=== PATIENT | female | born 2000 | race Two or more races ===

== ENCOUNTER → 2021-04-23 13:42 | Outpatient (BNVA) | payer OTHER, SELFPAY | PROVIDERS: PCP Nurse Practitioner; Visit Provider Psychiatry & Neurology Neurology ==

== ENCOUNTER → 2021-07-02 13:47 | Outpatient (BNVA) | payer OTHER, SELFPAY | PROVIDERS: PCP Nurse Practitioner; Visit Provider Nurse Practitioner Family | DX: R51.9 Headache, unspecified (principal) ==

== ENCOUNTER → 2022-02-17 13:39 | Outpatient (BNVA) | payer OTHER, SELFPAY | PROVIDERS: PCP Nurse Practitioner; Visit Provider Nurse Practitioner Family | DX: Z13.89 Encounter for screening for other disorder (principal) ==

== ENCOUNTER → 2022-05-21 13:59 | Outpatient (BNVA) | payer OTHER, SELFPAY | PROVIDERS: PCP Nurse Practitioner; Visit Provider Nurse Practitioner Family | DX: D64.9 Anemia, unspecified (principal) ==

== ENCOUNTER 2024-05-02 12:34 | Outpatient (AMB) | payer MEDICAID, SELFPAY ==
--- NOTE | 2024-05-02 12:40 | MHC.OFFVIS ---
Vital Signs 05/02/24 12:41 Height 5 ft 2 in Weight 132 lb BMI 24.1 BP 108/70 Blood Pressure Location Rt brachial Position Sitting Intake Visit Reasons: Follow up Intake Note: Patient following up on labs done on 05/22/23.patient no showed to MRI appt. on 08/18/22 Allergies No Known Allergies Allergy (Verified 05/02/24 12:42) Medication List - Last Reconciled 05/02/24 by Leesa Carver MD ascorbate calcium (vitamin C) 500 mg PO DAILY 90 days famotidine (Pepcid) 20 mg PO BID ferrous sulfate 325 mg PO Q OTHER DAY 90 days guselkumab (Tremfya) mg subcut ketoconazole 2% topical Q OTHER DAY magnesium oxide 400 mg PO BEDTIME 90 days propranolol 10 mg PO BID topiramate (Topamax) 25 mg PO BEDTIME 90 days HPI Comments Details: 24 y/o female patient presents for follow up of essential tremor, headache and anemia. The migraines have reduced significantly with topiramate - 1/month she feels her tremors are mildly worse. She is on topiramate 25 mg and magnesium 400 mg qHS. SHe was doing better when she took prorpranalol. Pt reports that she has bilateral legs tremor too. She feel sometimes weak but denies loss of balance. Pt has family hx of essential tremor. Pt reports that the tiredness has improved with iron and vitamin C.? [facility] Medical History GERD (gastroesophageal reflux disease) Headache Anxiety Occasional tremors Social History Alcohol intake: never Patient Tobacco Use Status: Never used Tobacco Review of Systems ENT Reports Normal hearing present Neuro Reports Normal hearing present Physical Exam Vital Signs: Last Vital Signs BP 108/70 05/02/24 12:41 BMI result Body Mass Index 24.1 Const General: cooperative and no acute distress Nutritional Appearance: average body habitus Orientation/consciousness: patient oriented x3 Neck Neck: Yes full ROM and Yes supple Resp Effort & Inspection: normal respiratory effort and able to speak in complete sentences Neuro General: patient oriented x3, gait normal, moves all extremities and no focal motor deficits Cranial nerves: Yes Bilaterally intact EOM present, Yes Normal facial strength present, Yes Midline tongue present, Yes Normal hearing present, Yes Ability to bilaterally rotate head present and Yes Ability to bilaterally elevate shoulders present Cognition (Neuro): normal cognition Gait exam (Neuro): Normal gait present Motor exam (neuro): 5/5 motor strength present throughout, Pronator motor function not present, Normal motor muscle tone present throughout and Tremors during motor activity present (bilateral posturing hands tremor and feet tremor. ) Coordination: [id number] test normal Extrem Other: isela UE postural and action tremors, mild to moderate Psych Appearance: well kempt Mental Status: mental status grossly normal Affect: Anxious affect present Assessment & Plan Assessment & Plan (1) Tremor of both hands: Code(s): R25.1 - Tremor, unspecified Category: Medical (2) Headache: Code(s): R51.9 - Headache, unspecified Category: Medical (3) Anxiety: Code(s): F41.9 - Anxiety disorder, unspecified Category: Medical Plan magnesium 400 mg q HS and topiramate 25 mg qHS. Continue to take ferrous sulfate 325 mg q other day with vitamin C 500 mg daily. Restart propranolol 10mg bid Medications: New propranolol 10 mg PO BID 60 tabs 1RF famotidine (Pepcid) 20 mg PO BID 60 tabs 6RF Discontinued propranolol Discontinued Reason: Patient no longer taking 60 mg PO BEDTIME 30 days 30 tabs 2RF Coding Level of Care Code Est Pt Level 4 (65356) Complex EM visit Add On G2211 Diagnoses Tremor of both hands R25.1 Headache R51.9 Anxiety F41.9
[2024-05-02 12:41] VITALS: BP 108/70; BMI 24.1
--- OUTSIDE RECORDS SUMMARY | 2024-05-02 14:56 | XMS_ITS | Clinical Summary ---
Author Organization [facility] Address [address] [place] [address] Care Team Providers Care Body Die Maker Name Role Phone Lore Hoyos TESSIE Primary Care Provider [phone] Source Comments PLEASE NOTE, if this patient is a minor, it may be UNLAWFUL to discuss sensitive information that is contained in these records (such as FAMILY PLANNING, MENTAL HEALTH or SUBSTANCE ABUSE) with the minor patient's parent or other person without the patient's specific authorization.[facility] Allergies No known active allergies Medications selenium sulfide (SELSUN BLUE) 1 % topical suspensionIndic ations:Dandruff in adult Apply topically once daily as needed for other reason (dry and itchy scalp) 240 mL 2 4 Active ferrous sulfate 325 mg (65 mg iron) tabletIndicatio ns:iron deficiency anemia Take 1 Tablet by mouth once daily with breakfast Indications: anemia from inadequate iron 90 Tablet 3 4 Active Active Problems Problem Noted Date Diagnosed Date Tinea versicolor 08/24/2021 Overview (08/24/2021): Previously treated by Dr Leonard with selenium sulfide. Cervicogenic headache 05/20/2020 Epigastric abdominal pain 03/22/2020 H. pylori infection s/p treatment 02/18/2020 Overview (12/15/2020): 11/27/[address] Solo; normal. Pathology pending. Tremor 02/18/2020 Overview (05/20/2020): 01/25/20 Joana at [facility] Dr Gipson. Concern for Arsenio's disease vs essential tremor. Will get records of work up. Get ophtho exam for slit lamp exam, check labs, sign release of records from [facility]. F/u 3 months. 04/29/20 F/u [facility]. Concern for Arsenio's disease. Ordered genetic testing, ophthalmology exam for slit lamp exam, Will likely pursue referral to Movement Disorder clinic at [facility] for further evaluation if genetic testing is positive. Iron deficiency 02/18/2020 Overview (12/15/2023): 12/15/23- ferrous sulfate 325mg started---recheck labs in ~3 months.. Feb 2024 Low serum copper for age 0102/18/2020 Plaque psoriasis 05/31/2017 Overview (08/24/2021): 09/08/20 F/u Dr Leonard. Continue Tremfya, labs today. F/u 3 months. 03/26/21 F/u Dr Leonard. Check labs. Continue home injections of Tremfya every 8 weeks. F/u 3 months. 06/16/21 F/u Dr Leonard. Continue Tremfya every 8 weeks. F/u 3 months. Beta thalassemia 04/15/2015 Overview (05/31/2017): 09/15/[address] Omar Burger at [facility]. Her anemia is c/w beta thalassemia trait. He recommends genetic counseling. Stop iron supplements. She also has a h/o tremulousness and dropping things as well as a low ceruloplasmin. Recommends serum copper and 24-hour urine copper and consider evaluation by infantryman to look for Mann Gabrielle rings (all symptoms of Arsenio's diease). If this is positive, consider referral to GI or neurology. He was not able to communicate results to the pt and her family d/t not picking up the phone. Immune to varicella 10/10/2013 Overview (11/23/2013): Immune by serologic Immune to hepatitis B 10/10/2013 Overview (11/23/2013): Immune by serologic Anemia Resolved Problems Problem Noted Date Diagnosed Date Resolved Date Iron deficiency anemia 01/27/201505/31 Immunizations Name Administration Dates Next Due Flu, Preservative Free 03/24/2021 HEP B, PED/ADOL 10/10/2013 HPV 9 (Gardasil) 01/23/2016,08/01/2015 HPV, QUADRIVALENT 01/17/2014 Hep A, Ped/adol, 2 Dose 01/27/2015,01/17/2014 IPV 01/27/2015, 4,11/23/2013,10/10 Influenza Virus Vaccine (FLU MIST), Live Intranasal 11/23/2013 MENINGOCOCCAL MCV4P (MENACTRA) 08/01/2015,2013 MMR (MMR II/Priorix) 11/23/2013,10/10/2013 PFIZER COVID VACCINE, PURPLE CAP, 12+ 03/24/2021 ,07/21/2020,06/25/2020 PNEUMOCOCCAL CONJUGATE PCV 13 10/10/2013 PNEUMOCOCCAL POLYSACCHARIDE PPV23 2015,08/01/2015(Deferred: Out of Stock) TDAP 11/23/2013,10/10/2013 Td (adult), 5 Lf tetanus tox oid, preservative free 06/12/2014 Varicella, Live Vaccine 10/10/2013 Family History Medical History Relation Name Comments No Known Problems Brother 1 No Known Problems Brother 2 No Known Problems Brother 3 Other (See Comments) Father Myah perry No Known Problems Mother Cancer Neg Diabetes Neg Heart Problems Neg Relation Name Status Comments Brother 1 Alive Brother 2 Alive Brother 3 Alive Father Alive Mother Alive Social History Tobacco Use Types Packs/Day Years Used Date Smoking Tobacco: Never Smokeless Tobacco: Never Alcohol Use Standard Drinks/Week Comments No 0 (1 standard drink = 0.6 oz pur e alcohol) Social Connections Answer Date Recorded Connectedness 0 10/21/2023 Financial Resource Strain Answer Date R ecorded Financial Resource Strain 0 2018 Stress Answer Date Recorded Stress 0 10/08/2018 Physical Activity Answer Date Recorded Physical Activity 0 10/08/2018 Food Insecurity Answer Date Recorded Food 0 03/16/2021 Transportation Needs Answer Date Record ed Transportation 0 03/16/2021 Housing Stability Answer Date Recorded Housing 0 03/16/2021 Safety and Environment Answer Date Tom rded Safety 0 01/19/2023 Utilities Answer Date Recorded Utilities 0 03/16/2021 Employment Answer Date Recorded Stress 0 05/04/2021 Comments No Sex and Gender Information Value Date Recorded Sex Assigned at Female 05/31/2017 12:49 PM PDT Legal Sex Female 9:30 AM PDT Gender Identity Female 05/31/2017 12:49 PM PDT Sexual Orientation Straight 05/31/2017 12 :49 PM PDT Last Filed Vital Signs Vital Sign Reading Time Taken Comments Blood Pressure 118/80 12/08/2023 11:01 AM EDT Pulse 92 12/08/2023 11:01 AM EDT Temperature 36.7 ??C (98 ??F) 12/08/2023 11:01 AM EDT Respiratory Rate 16 12/08/2023 11:01 AM EDT Oxygen Saturation 98% 12/08/2023 11:01 AM EDT Inhaled Oxygen Concentration - - Weight 61.2 kg (135 lb) 12/08/2023 11:01 AM EDT Height 154.9 cm (5' 1 ) 12/08/2023 11:01 AM EDT Body Mass Index 25.51 12/08/2023 11:01 AM EDT Plan of Treatment Health Maintenance Due Date Last Done Comments HPV Screening 1998 Pap + HPV 1998 Cervical Cancer Screening 2019 Pap Smear 2019 Annual Preventive Care Visit 02/28/2020 02/27/2019, 05/31/2017 Relationship Safety Screening/Counseling 01/20/2024 01/19/2023, 03/16/2021, 05/20/2020 Alcohol and Drug Screen 02/15/2024 12/08/19 24, 01/19/2023, 03/18/2020, Additional history exists Depression Annual Screen 02/15/2024 12/08/2023, 05/15 [id number] ( season) 2024 03/24/2021, 07/21/2020, 06/25/2020 Postponed from 10/16/2023 (Patient postponement) Imm-DTaP/Tdap/Td (4 - Td or Tdap) 06/12/2024 06/12/2014, 11/23/2013, 10/10/2013 Imm-Influenza (#1) 2024 03/24/2021, 11/23/2013 Postponed from 10/16/2023 (Patient postponement) Hypertension Screening (#1) 12/07/2024 Tobacco Screening 12/07/2024 12/08/2023 Imm-Hepatitis B Discontinued 10/10/2013, 10/10/2013 Imm-HPV Completed 01/23/2016, 07/15, 01/17/2014 HIV Screening Completed 01/14/2020, 10/10/2013 Hepatitis C Screening Completed 03/16/2021 Cervical Ablation/Cold-Knife Conization Discontinued Cervical Cryotherapy Discontinued Colposcopy Discontinued Endometrial Biopsy Discontinued Excision/Leep Discontinued HPV Genotyping Discontinued Vaginal Pap Discontinued Vulvoscopy Discontinued Procedures Procedure Name Priority Date/Time Associated Diagnosis Comments HEPATITIS C AB W/RFLX HCV RNA, QT, RT PCR Routine 03/16/2021 11:42 AM EST Encounter for hepatitis C screening test for low risk patient ANTIBODY HIV-1&HIV-2 SINGLE RESULT Routine 01/14/2020 10:54 AM EST Lump in neck from Last 3 Months or Most Recently Relevant to Health Maintenance Results * HEPATITIS C AB W/RFLX HCV RNA, QT, RT PCR (03/16/2021 11:42 AM EST) HEPATITIS C ANTIBODY NON-REACT GALLO NON-REACT GALLO [employer] SIGNAL TO CUT-OFF 0.41 <1.00 [employer] [facility] Comment: HCV antibody was non-reactive. There is no laboratory evidence of HCV infection. In most cases, no further action is required. However, if recent HCV exposure is suspected, a test for HCV RNA (test code 11963) is suggested. For additional information please refer to http://education.PlaceILive.com/faq/AEP88y3 (This link is being provided for informational/ educational purposes only.) Blood Blood / Unknown 03/16/2021 1 1:42 AM EST 03/16/2021 11:42 AM EST [facility] - BLOOD DRAW Edited R esult - Final [employer] [address] [address], [place] [facility] [address] [address] * HIV-1 & HIV-2 ANTIBODIES (01/14/2020 10:54 AM EST) [facility] HIV 1 AND 2 ANTIBODY SCREEN NEGATIVE NEGATIVE [employer] [facility] Comment: This assay is a 4th generation assay allowing for earlier detection of HIV infection by detecting the presence of the HIV-1 p24 antigen as well as the traditional antibodies to HIV type 1 (including group O) and type 2. ??Use of a 4th generation assay is the current CDC recommendation for HIV screening. 01/14/2020 10:5 4 AM EST 01/14/2020 1:19 PM EST Narrative [facility] - 01/14/2020 4:41 PM EST [employer], [place] [address] Funeral Service Manager - Yolanda Maria MD PT ID [id number] ORD# [id number] us [facility] - BLOOD DRAW Final Re sult [facility] [employer] [address], from Last 3 Months or Most Recently Relevant to Health Maintenance Care Teams Body Die Maker Relationship Specialty Start Date End Date Lore Hoyos NP [address] [place] [address] PCP - General Family Medicine, [employer] [facility] 12/13/23
== END 2024-05-02 13:12 | disposition home or self-care (01) ==
LOC: HO.HSMS 12:35
PROVIDERS: PCP Nurse Practitioner; Visit Provider Psychiatry & Neurology Neurology
DX: R25.1 Tremor, unspecified (principal); R51.9 Headache, unspecified; F41.9 Anxiety disorder, unspecified
CPT/HCPCS: 99214

== ENCOUNTER → 2024-05-02 12:34 | Outpatient (BNVA) | payer MEDICAID, SELFPAY | PROVIDERS: PCP Nurse Practitioner; Visit Provider Psychiatry & Neurology Neurology | DX: R25.1 Tremor, unspecified (principal); R51.9 Headache, unspecified; F41.9 Anxiety disorder, unspecified | CPT/HCPCS: 99212 ==

== ENCOUNTER 2024-08-08 13:05 | Outpatient (REF) | payer MEDICAID, SELFPAY ==
--- OUTSIDE RECORDS SUMMARY | 2024-08-09 14:23 | XMS_ITS | Clinical Summary ---
Author Organization [facility] Address [address] [place] [address] Care Team Providers Care Timber Estimator Name Role Phone Lore Hoyos TESSIE Primary Care Provider [phone] Source Comments PLEASE NOTE, if this patient [...] Tremor 02/18/2020 Overview (05/20/2020): 01/25/20 Joana at [facility] Neurology Dr Gipson. Concern for Arsenio's disease vs essential tremor. Will get records of work up. Get ophtho exam for slit lamp exam, check labs, sign release of records from [facility]. F/u 3 months. 04/29/20 F/u [facility] Neu[facility]. Concern for Arsenio's disease. Ordered genetic testing, ophthalmology exam for slit lamp exam, Will likely pursue referral to Movement Disorder clinic at [facility] for further evaluation if genetic testing is [...] 09/15/[address] Omar Burger at [facility] Ped Heme/Onc. Her anemia is c/w beta thalassemia trait. He recommends genetic counseling. Stop iron supplements. She also has a h/o tremulousness and dropping things as well as a low ceruloplasmin. Recommends serum copper and 24-hour urine copper and consider evaluation by flight attendant ramp to look for Mann Gabrielle rings (all [...] MCV4P (MENACTRA) 08/01/2015,2013 MMR (MMR II/Priorix) 11/23/2013,10/10/2013 [employer] VACCINE, PURPLE CAP, 12+ 03/24/2021 ,07/21/2020,06/25/2020 PNEUMOCOCCAL [...] 2:40 PM EDT Office Visit [facility] [address] [place] [address] Lore Hoyos, TESSIE [address] [place] [address] Health Maintenance Due Date Last Done Comments Anxiety Screening 1998 HPV Screening 1998 Pap + HPV 1998 Cervical Cancer Screening 2019 Pap Smear 2019 Annual Wellness (Adult): Indicated (All Coverage) 02/28/2020 02/27/2019, 05/31/2017 [id number] ( season) 2023 03/24/2021, 07/21/2020, 06/25/2020 Relationship [...] HEPATITIS C ANTIBODY NON-REACT GALLO NON-REACT GALLO [employer] SIGNAL TO CUT-OFF 0.41 <1.00 [employer] Comment: HCV antibody was non-reactive. There is no laboratory evidence of HCV infection. In most cases, no further action is required. However, if recent HCV exposure is suspected, a test for HCV RNA (test code 83412) is suggested. For additional information please refer to http://education.Novalere FP/faq/LRU08y0 (This link is being provided for informational/ educational purposes only.) Blood Blood / Unknown 03/16/2021 1 1:42 AM EST 03/16/2021 11:42 AM EST [facility]op[facility] MEYERP [facility] - BLOOD DRAW Edited R esult - Final [facility] [address] [address], [facility] [address] [address] * HIV-1 & HIV-2 ANTIBODIES (01/14/2020 10:54 AM EST) [facility] HIV 1 AND 2 ANTIBODY SCREEN NEGATIVE NEGATIVE [facility] [employer] | [facility] Comment: This assay is a 4th generation [...] AM EST 01/14/2020 1:19 PM EST Narrative [facility] [employer] [facility] - 01/14/2020 4:41 PM EST [employer], [place] [address] Cant Hooker - Yoalnda Maria MD PT ID [id number] ORD# [id number] [facility] CORT[facility] - BLOOD DRAW Final Re sult Performing Organization Address City/[facility]/ZIP Co de Phone Number [facility] [employer] | [employer]where[address] [address], from Last 3 Months or Most Recently Relevant to Health Maintenance Care Teams Timber Estimator Relationship Specialty Start Date End Date Lore Hoyos NP [address] [place] [address] PCP - General Family Medicine, VARITYPE OPERATOR 12/13/23"
== END 2024-08-08 13:06 | disposition home or self-care (01) ==
LOC: HO.HKASLDS 13:05
PROVIDERS: PCP Nurse Practitioner; Visit Provider Physician Assistant Medical
DX: R25.1 Tremor, unspecified (principal); R51.0 Headache with orthostatic component, not elsewhere classified; F41.9 Anxiety disorder, unspecified; R71.8 Other abnormality of red blood cells
CPT/HCPCS: 99212

== ENCOUNTER 2024-08-08 13:05 | Outpatient (AMB) | payer MEDICAID, SELFPAY ==
--- NOTE | 2024-08-08 13:08 | MHC.OFFVIS ---
Vital Signs 08/08/24 13:09 Height 5 ft 2 in Weight 130 lb 6 oz BMI 23.8 BP 110/76 Blood Pressure Location Lt brachial Position Sitting Pulse 90 Pulse Source Pulse Oximeter Pulse Oximetry (%) 98 Oxygen Delivery Method Room Air Intake Visit Reasons: 3 mnts f/u Intake Note: Patient presents follow up Tremor/headache medication. Allergies No Known Allergies Allergy (Verified 08/08/24 13:10) HPI Comments Details: 24 y/o female patient presents for follow up of essential tremors, and headaches. She usually sleeps about 8 hours a night and is fatigued easily. She noticed the tremors since 2020, and there is no specific pattern. She has tremors bilaterally in her upper and lower extremities, she can not stand for a long period of time without needing to sit and rest, her body temperature increases, she feels hot especially during her menstrual cycle and eats ice cream to cool off or takes a cold shower. She states she no longer takes 10mg of Propanolol because she is not anxious and her mood has improved. She also notices small ulcers in her mouth and around her lips for a few weeks. She denies stimulant use, will have chocolate bars, ghiradellis one a day, and also one cup of coffee in a week, no tea. She denies fevers, hot flashes, and denies sweating, numbness, burning, pins, needles, denies bells palsey, or lyme disease. She denies family history of neurological disorders, and hemaglobinopathies, however states her father also has anemia with tremors. She used to take iron 325mcg for anemia, however she no longer is taking it because she ran out. Headaches She has daily headaches in the mornings upon waking up and can last 1/2 hour with a severity of 7/10. She has to move slowly from lying to sitting bc the headaches will worsen with sudden movements. The headaches begin on the side of the head and migrate to the back of her head with a pinching, and sharp pain. She notices vertigo immediately as if the earth is moving and dizziness. Denies loss of balance or gait, denies n/v, the headaches improve with Topiramate 25mg po. She also has psoriasis and takes tremfiya, which also has a s/e of headaches, she will consider changing this medication. [facility] Medical History GERD (gastroesophageal reflux disease) Headache Anxiety Occasional tremors Social History Alcohol intake: never Patient Tobacco Use Status: Never used Tobacco Review of Systems ENT Reports Normal hearing present Neuro Reports Normal hearing present and Reports tremor(s) Physical Exam Vital Signs: Last Vital Signs Pulse 90 08/08/24 13:09 BP 110/76 08/08/24 13:09 Pulse Ox 98 08/08/24 13:09 Oxygen Delivery Method Room Air 08/08/24 13:09 BMI result Body Mass Index 23.8 Const General: cooperative and no acute distress Nutritional Appearance: average body habitus Orientation/consciousness: patient oriented x3 Eyes Pupils: Equal, round and reactive pupils present Neck Neck: Yes full ROM and Yes supple Resp Effort & Inspection: normal respiratory effort and able to speak in complete sentences Neuro General: patient oriented x3, gait normal, moves all extremities and no focal motor deficits Cranial nerves: Yes Equal, round and reactive pupils present, Yes Bilaterally intact EOM present, Yes Normal facial strength present, Yes Midline tongue present, Yes Normal hearing present, Yes Ability to bilaterally rotate head present and Yes Ability to bilaterally elevate shoulders present Cognition (Neuro): normal cognition Gait exam (Neuro): Normal gait present Motor exam (neuro): 5/5 motor strength present throughout, Pronator motor function not present, Normal motor muscle tone present throughout and Tremors during motor activity present (bilateral posturing hands tremor and feet tremor. ) Coordination: [id number] test normal Extrem Other: isela UE postural and action tremors, mild to moderate Psych Appearance: well kempt Mental Status: mental status grossly normal Speech and movement: Other speech and movement exam findings present (Psych) (language barrier, speaks martiniquais) Affect: normal affect Attitude: cooperative Thought process: Normal thought process present Thought content: Normal thought content present Results Reviewed Results Reviewed: lab reports from 2022 -anemia with low copper and iron. RBC morphology moderate anisocytosis, hypochromia, microcytosis, poikolocytosis, few schistocytes, few eliiptocytes, moderate ovalyocytes. Assessment & Plan Assessment & Plan (1) Tremor of both hands: Code(s): R25.1 - Tremor, unspecified Category: Medical (2) Headache: Code(s): R51.9 - Headache, unspecified Category: Medical Qualifiers: Headache type: orthostatic headache Qualified Code(s): R51.0 - Headache with orthostatic component, not elsewhere classified (3) Anxiety: Code(s): F41.9 - Anxiety disorder, unspecified Category: Medical (4) Abnormal RBC morphology: Comment: Anemia, thalassemia? BERTRAND? Code(s): R71.8 - Other abnormality of red blood cells Category: Medical Plan Tremors bilateral upper and lower extremity. Declines propranolol today, will trial her on an anxiloytic as needed. Headaches Continue Topiramate 25mg PO daily at night. Sumatriptan 50mg at the onset of headache and may take one additional tablet with in 2 hours if headache does not abort. Do not exceed more than 100mg in a 24 hour period. Start magnesium 400 mg qhs Start B6 200mg qhs. Continue to take ferrous sulfate 325 mg q other day with vitamin C 500 mg daily. Increase water intake for constipation. Hematology referral for abnormal rbc morphology on smear. Will f/u in 3 months. Orders: Orders Lyme Synovial Fld PCR Today D64.9 - Anemia, unspecified IRON PROFILE Today D64.9 - Anemia, unspecified, G47.9 - Sleep disorder, unspecified, R53.83 - Other fatigue Vitamin D 25-OH Total Today D64.9 - Anemia, unspecified TSH reflex Free T4 Today D64.9 - Anemia, unspecified Complete Blood Count no Diff Today D64.9 - Anemia, unspecified Comprehensive Met. Panel Today D64.9 - Anemia, unspecified Ferritin Today D64.9 - Anemia, unspecified Methylmalonic Acid Today D64.9 - Anemia, unspecified, G47.9 - Sleep disorder, unspecified, R53.83 - Other fatigue Lyme IgG/IgM w/reflex to WB Today D64.9 - Anemia, unspecified Homocysteine Today D64.9 - Anemia, unspecified, G47.9 - Sleep disorder, unspecified, R53.83 - Other fatigue Vitamin B12 and Folate Today D64.9 - Anemia, unspecified Referrals Hematology & Oncology Referral R71.8 - Other abnormality of red blood cells Medications: New sumatriptan succinate 50 mg orally; at the onset of headache, may repeat 2 hours later if headache does not abort. Do not take more than 2 tablets in a 24 hour period. 10 tabs 0RF headaches MDD 100mg R51.9 - Headache, unspecified Patient Instructions: Sleep Hygiene provided: set a scheduled bedtime and wake time to help regulate the circadian rhythm and balance the release of pituitary hormones. Sleep in a dark room, temperatures below 68 degrees, and no devices n bed. Limit caffeinated products 6 hours prior to bed, and limit fluids 2-4 hours prior to bed. Gentle night yoga, diffusing essential oils, and playing soft music can be relaxing. Coding Level of Care Code Est Pt Level 4 (70774) Diagnoses Tremor of both hands R25.1 Orthostatic headache R51.0 Headache type: orthostatic headache Anxiety F41.9 Abnormal RBC morphology R71.8 Time Spent (min) 30 Comment baseline
[2024-08-08 13:09] VITALS: BP 110/76; PULSE 90; O2SAT 98; BMI 23.8
--- OUTSIDE RECORDS SUMMARY | 2024-08-08 15:19 | XMS_ITS | Clinical Summary ---
Author Organization [facility] Address [address] [place] [address] Care Team Providers Care Geothermal Installer Name Role Phone Lore Hoyos TESSIE Primary Care Provider [phone] Source Comments PLEASE NOTE, if this patient [...] Tremor 02/18/2020 Overview (05/20/2020): 01/25/20 Joana at [facility] Neurology Dr Gipson. Concern for Arsenio's disease vs essential tremor. Will get records of work up. Get ophtho exam for slit lamp exam, check labs, sign release of records from [facility]. F/u 3 months. 04/29/20 F/u [facility] Neurology. Concern for Arsenio's disease. Ordered genetic testing, ophthalmology exam for slit lamp exam, Will likely pursue referral to Movement Disorder clinic at [facility] for further evaluation if genetic testing is [...] 09/15/[address] Omar Burger at [facility] Ped Heme/Onc. Her anemia is c/w beta thalassemia trait. He recommends genetic counseling. Stop iron supplements. She also has a h/o tremulousness and dropping things as well as a low ceruloplasmin. Recommends serum copper and 24-hour urine copper and consider evaluation by block piler to look for Mann Gabrielle rings (all [...] Resolved Date Iron deficiency anemia 01/27/201505/31 Immunizations Immunization Administration Dates Next Due Flu, Preservative Free 03/24/2021 HEP B, PED/ADOL 10/10/2013 HPV 9 (Gardasil) 01/23/2016,08/01/2015 HPV, QUADRIVALENT 01/17/2014 Hep A, Ped/adol, 2 Dose 01/27/2015,01/17/2014 IPV (IPOL) 01/27/2015, 4,11/23/2013,10/10 Influenza Virus Vaccine (FLU MIST), Live Intranasal 11/23/2013 MENINGOCOCCAL MCV4P (MENACTRA) 08/01/2015,2013 MMR (MMR II/Priorix) 11/23/2013,10/10/2013 Brilig COVLUMOback VACCINE, PURPLE CAP, 12+ 03/24/2021 ,07/21/2020,06/25/2020 PNEUMOCOCCAL CONJUGATE PCV 13 10/10/2013 PNEUMOCOCCAL POLYSACCHARIDE PPV23 (Pneumovax 23) 01/23/2016,08/01/2015(Deferred: Out of Stock) TDAP 11/23/2013,10/10/2013 Td (adult), 5 Lf tetanus tox oid, preservative free 06/12/2014 Varicella (Varivax), Live Vaccine 10/10/2013 Family History Medical History Relation Name Comments No Known Problems Brother 1 No Known Problems Brother 2 No Known Problems Brother 3 Other (See Comments) Father Myah th vicky No Known Problems Mother Cancer Neg Diabetes [...] 92 12/08/2023 11:01 AM EDT Temperature 36.7 C (98 F) 12/08/2023 11:01 AM EDT Respiratory Rate 16 12/08/2023 11:01 AM EDT Oxygen Saturation 98% 12/08/2023 11:01 AM EDT Inhaled Oxygen Concentration - - Weight 61.2 kg (135 lb) 12/08/2023 11:01 AM EDT Height 154.9 cm (5' 1 ) 12/08/2023 11:01 AM EDT Body Mass Index 25.51 12/08/2023 11:01 AM EDT Plan of Treatment Upcoming Encounters Date Type Department Care Team (Late st Contact Info) Description 09/07/2024 2:40 PM EDT [facility] Visit [facility] [address] [place] [address] Lore Hoyos, TESSIE [address] [place] [address] Health Maintenance Due Date Last Done Comments Anxiety Screening 1998 HPV Screening 1998 Pap + HPV 1998 Cervical Cancer Screening 2019 Pap Smear 2019 Annual Wellness (Adult): Indicated (All Coverage) 02/28/2020 02/27/2019, 05/31/2017 [id number] ( season) 2023 03/24/2021, 07/21/2020, 06/25/2020 Relationship Safety Screening/Counseling 01/20/2024 01/19/2023, 03/16/2021, 05/20/2020 Alcohol and Drug Screen 02/15/2024 12/08/19 24, 01/19/2023, 03/18/2020, Additional history exists Depression Annual Screen 02/15/2024 12/08/2023, 05/15 Imm-DTaP/Tdap/Td (4 - Td or Tdap) 06/12/2024 06/12/2014, 11/23/2013, 10/10/2013 Imm-Influenza (Season Ended) 2024 03/24/2021, 11/23/2013 Hypertension Screening (#1) 12/07/2024 Tobacco Screening 12/07/2024 [...] HEPATITIS C ANTIBODY NON-REACT GALLO NON-REACT GALLO [employer] SIGNAL TO CUT-OFF 0.41 <1.00 Diabetica Comment: HCV antibody was non-reactive. There is no laboratory evidence of HCV infection. In most cases, no further action is required. However, if recent HCV exposure is suspected, a test for HCV RNA (test code 68506) is suggested. For additional information please refer to http://education.Prezto/faq/ZTM08z1 (This link is being provided for informational/ educational purposes only.) Blood Blood / Unknown 03/16/2021 1 1:42 AM EST 03/16/2021 11:42 AM EST Cleopatra MEYERP [facility] - BLOOD DRAW Edited R esult - Final [facility] [address] [address], [facility] [address] [address] * HIV-1 & HIV-2 ANTIBODIES (01/14/2020 10:54 AM EST) [facility] HIV 1 AND 2 ANTIBODY SCREEN NEGATIVE NEGATIVE [facility] [employer] [facility] Comment: This assay is a 4th generation assay allowing for earlier detection of HIV infection by detecting the presence of the HIV-1 p24 antigen as well as the traditional antibodies to HIV type 1 (including group O) and type 2. Use of a 4th generation assay is the current CDC recommendation for HIV screening. 01/14/2020 10:5 4 AM EST 01/14/2020 1:19 PM EST Narrative [facility] - 01/14/2020 4:41 PM EST [employer], [place] [address] Passenger Vessel Chef - Yolanda Maria MD PT ID [id number] ORD# [id number] [facility] CORTES [facility] - BLOOD DRAW Final Re sult Performing Organization Address City/[facility]/ZIP Co de Phone Number [facility] [employer] [address], from Last 3 Months or Most Recently Relevant to Health Maintenance Care Teams Geothermal Installer Relationship Specialty Start Date End Date Lore Hoyos NP [address] [place] [address] PCP - General Family Medicine, BECK TENDER 12/13/23
== END 2024-08-08 14:03 | disposition home or self-care (01) ==
LOC: HO.HSMS 13:06
PROVIDERS: PCP Nurse Practitioner; Visit Provider Physician Assistant Medical
DX: R25.1 Tremor, unspecified (principal); R51.0 Headache with orthostatic component, not elsewhere classified; F41.9 Anxiety disorder, unspecified; R71.8 Other abnormality of red blood cells
CPT/HCPCS: 99214

== ENCOUNTER 2024-08-09 12:02 | Outpatient (REF) | payer MEDICAID, SELFPAY ==
[2024-08-09 17:49] LABS: Alanine Aminotransferase 14 U/L (0-31); Albumin Level 4.5 g/dL (3.5-5.0); Alkaline Phosphatase 50 U/L (39-117); Anion Gap 11 (12-20); Aspartate Amino Transferase 18 U/L (5-31); Bilirubin Total 0.8 mg/dL (0.0-1.0); Blood Urea Nitrogen 9 mg/dL (9-16); Calcium 8.9 mg/dL (8.4-10.2); Carbon Dioxide 24 mmol/L (22-29); Chloride 108 mmol/L (96-108); Estimated Glomerular Filt Rate > 60; Glucose Random 88 mg/dL (60-115); Iron 77 mcg/dL (30-160); Percent Iron Saturation 25 % (15-50); Potassium 3.8 mmol/L (3.3-5.1); Sodium 139 mmol/L (135-145); Total Iron Binding Capacity 311 mcg/dL (228-428); Total Protein 6.7 g/dL (6.5-8.0); Unsaturated Iron Binding 234 ug/dL
[2024-08-09 18:04] LABS: Ferritin 8 ng/mL (10-122); TSH reflex Free T4 1.47 uIU/mL (0.32-4.0); Vitamin D 25-OH Total 14.7 ng/mL (>30)
[2024-08-09 18:54] LABS: Folate 8.4 ng/mL (> or = 4.0); Vitamin B12 488 pg/mL (200-900)
[2024-08-09 20:14] LABS: Hematocrit 31.6 % (37.0-47.0); Hemoglobin 10.1 g/dl (12.0-16.0); Mean Corpuscular Hemoglobin 18.3 pg (27.0-33.0); Mean Corpuscular Volume 57.2 fL (80.0-98.0); Platelet Count 252 X10*3/uL (160-400); Red Blood Count 5.52 X10*6/uL (4.20-5.50); Red Cell Distribution Width 18.4 % (11.0-16.0); White Blood Count 4.4 X10*3/uL (4.8-10.8)
[2024-08-10 12:03] LABS: Lyme Abs Screen <0.90 index
[2024-08-10 22:24] LABS: Lyme PCR Source NOT GIVEN; Lyme Synovial Fluid PCR NOT DETECTED (NOT DETECTED)
[2024-08-12 10:33] LABS: Methylmalonic Acid 95 nmol/L (55-335)
== END 2024-08-09 12:03 | disposition home or self-care (01) ==
LOC: HO.HKASLDS 12:02
PROVIDERS: Visit Provider Physician Assistant Medical
DX: R53.83 Other fatigue (principal); G47.9 Sleep disorder, unspecified; D64.9 Anemia, unspecified
CPT/HCPCS: 36415; 80053; 82306; 82607; 82728; 82746; 83090; 83540; 83921; 84443; 85027; 86617; 86618; 87476

== ENCOUNTER 2024-09-07 15:47 | Outpatient (REF) | payer MEDICAID, SELFPAY ==
--- NOTE | ~2024-09-07 | XR_ITS ---
EXAMINATION: XR SKULL CLINICAL INFORMATION: R71.8 - Other abnormality of red blood cells, anemia COMPARISON: None available. TECHNIQUE: 5 views of the skull were obtained. FINDINGS: There is no abnormality of the skull. There is no bony hypertrophy, endosteal scalloping, periosteal new bone formation, fracture, or other abnormality. Paranasal sinuses are clear. XR/XR skull min 4V IMPRESSION: Unremarkable examination. Electronically signed by: Garrett Lee MD 09/07/2024 04:36 PM EDT
--- OUTSIDE RECORDS SUMMARY | 2024-09-07 15:50 | XMS_ITS | Clinical Summary ---
Author Organization [facility] Address [address] [place] [address] Care Team Providers Care Plant Clerk Name Role Phone Lore Hoyos TESSIE Primary Care Provider [phone] Source Comments PLEASE NOTE, if this patient [...] Tremor 02/18/2020 Overview (05/20/2020): 01/25/20 Joana at [facility] Neurology Dr Gipson. Concern for Arsenio's disease vs essential tremor. Will get records of work up. Get ophtho exam for slit lamp exam, check labs, sign release of records from [facility]. F/u 3 months. 04/29/20 F/u [facility] Neurology. Concern for Arsenio's disease. Ordered genetic testing, ophthalmology exam for slit lamp exam, Will likely pursue referral to Movement Disorder clinic at [facility] for further evaluation if genetic testing is [...] 09/15/[address] Omar Burger at [facility] Ped Heme/Onc. Her anemia is c/w beta thalassemia trait. He recommends genetic counseling. Stop iron supplements. She also has a h/o tremulousness and dropping things as well as a low ceruloplasmin. Recommends serum copper and 24-hour urine copper and consider evaluation by reservationist to look for Mann Gabrielle rings (all [...] Flu, Preservative Free 03/24/2021 HEP B, PED/ADOL (EJDXRYE-[id number]-AGXT/RECOMBIVAX-PEDS) 10/10/2013 HPV 9 (Gardasil) 01/23/2016,08/01/2015 HPV, QUADRIVALENT 01/17/2014 Hep A, Ped/adol, 2 Dose 01/27/2015,01/17/2014 IPV (IPOL) 01/27/2015, 4,11/23/2013,10/10 Influenza Virus Vaccine (FLU MIST), Live Intranasal 11/23/2013 MENINGOCOCCAL MCV4P (MENACTRA) 08/01/2015,2013 MMR (MMR II/Priorix) 11/23/2013,10/10/2013 Mi-Pay COVID VACCINE, PURPLE CAP, 12+ 03/24/2021 ,07/21/2020,06/25/2020 PNEUMOCOCCAL CONJUGATE PCV 13 10/10/2013 PNEUMOCOCCAL POLYSACCHARIDE PPV23 (Pneumovax 23) 01/23/2016,08/01/2015(Deferred: Out of Stock) TDAP 11/23/2013,10/10/2013 Td (adult), 5 Lf tetanus tox oid (Tenivac), preservative free 06/12/2014 Varicella (Varivax), Live Vaccine [...] (Adult): Indicated (All Coverage) 02/28/2020 02/27/2019, 05/31/2017 [id number] ( season) 2023 03/24/2021, 07/21/2020, 06/25/2020 Relationship Safety Screening/Counseling 01/20/2024 01/19/2023, 03/16/2021, 05/20/2020 Alcohol and Drug Screen 02/15/2024 12/08/19, 01/19/2023, 03/18/2020, Additional history exists Depression Annual Screen 02/15/2024 12/08/2023, 05/15 Imm-DTaP/Tdap/Td (4 - Td or Tdap) 06/12/2024 06/12/2014, 11/23/2013, 10/10/2013 Imm-Influenza (#1) 2024 03/24/2021, 11/23/2013 Hypertension Screening (#1) 12/07/2024 Tobacco Screening 12/07/2024 12/08/2023 Imm-Hepatitis B Discontinued 10/10/2013, 10/10/2013 Imm-HPV Completed 01/23/2016, 07/15, 01/17/2014 HIV Screening Completed 01/14/2020, 10/10/2013 Hepatitis C Screening Completed 03/16/2021 Cervical Ablation/Cold-Knife Conization Discontinued Cervical Cryotherapy Discontinued Colposcopy Discontinued Endometrial Biopsy Discontinued Excision/Leep Discontinued HPV Genotyping Discontinued Vaginal Pap Discontinued Vulvoscopy Discontinued Procedures Procedure Name Priority Date/Time Associated Diagnosis Comments LAB SCANNED DOCUMENT 08/09/2024 3:00 AM EDT HEPATITIS C AB W/RFLX HCV RNA, QT, RT PCR Routine 03/16/2021 11:42 AM EST Encounter for hepatitis C screening test for low risk patient ANTIBODY HIV-1&HIV-2 SINGLE RESULT Routine 01/14/2020 10:54 AM EST Lump in neck from Last 3 Months or Most Recently Relevant to Health Maintenance Results * LAB SCANNED DOCUMENT (08/09/2024 3:00 AM EDT) 08/09/2024 3:00 AM EDT Cleopatra Carrillo WEBSITE ADMIN SCAN LAB Final Res ult * HEPATITIS C AB W/RFLX HCV RNA, QT, RT PCR (03/16/2021 11:42 AM EST) HEPATITIS C ANTIBODY NON-REACT GALLO NON-REACT GALLO [employer] SIGNAL TO CUT-OFF 0.41 <1.00 [employer] Comment: HCV antibody was non-reactive. There is no laboratory evidence of HCV infection. In most cases, no further action is required. However, if recent HCV exposure is suspected, a test for HCV RNA (test code 50602) is suggested. For additional information please refer to http://education.Panorama9/faq/SIQ14u9 (This link is being provided for informational/ educational purposes only.) Blood Blood / Unknown 03/16/2021 1 1:42 AM EST 03/16/2021 11:42 AM EST Cleopatra Adairinda [facility] - BLOOD DRAW Edited R esult - Final [facility] [address] [address], [facility] [address] [address] * HIV-1 & HIV-2 ANTIBODIES (01/14/2020 10:54 AM EST) [facility] HIV 1 AND 2 ANTIBODY SCREEN NEGATIVE NEGATIVE [employer] [facility] Comment: This assay is a 4th [...] 1:19 PM EST Narrative [facility] - 01/14/2020 4:41 PM EST [facility], a member of [address] [address] Boiler Mechanic - Yolanda Maria MD PT ID [id number] ORD# [id number] Jenny Belinda [facility] - BLOOD DRAW Final Re sult [facility] [employer] [address], from Last 3 Months or Most Recently Relevant to Health Maintenance Care Teams Plant Clerk Relationship Specialty Start Date End Date Lore Hoyos NP [address] [place] [address] PCP - General Family Medicine, CHAIN SALES REPRESENTATIVE 12/13/23
== END 2024-09-07 15:48 | disposition home or self-care (01) ==
LOC: HO.XRAY 15:47
PROVIDERS: Visit Provider Physician Assistant Medical
DX: D64.9 Anemia, unspecified (principal)
CPT/HCPCS: 70260

== ENCOUNTER → 2024-09-07 16:11 | Outpatient (BNV) | payer MEDICAID, SELFPAY | PROVIDERS: Visit Provider Radiology Diagnostic Radiology | DX: R71.8 Other abnormality of red blood cells (principal) | CPT/HCPCS: 70260 ==

== ENCOUNTER 2024-11-08 14:01 | Outpatient (AMB) | payer MEDICAID, SELFPAY ==
--- NOTE | 2024-11-08 15:07 | A.OFFVIS_ITS ---
Vital Signs 11/08/24 15:08 Height 5 ft 2 in Weight 128 lb 6 oz BMI 23.5 BP 102/72 Blood Pressure Location Rt brachial Position Sitting Pulse 82 Pulse Source Pulse Oximeter Pulse Oximetry (%) 99 Oxygen Delivery Method Room Air Intake Visit Reasons: 3m follow up Intake Note: Patient presents follow up tremor/migraine medication. Labs in chart.. Patient states 2 migraines per months. states lessen the migraine. Tremors are about the same. Carbon Sequestration Plant Manager Required: Yes Carbon Sequestration Plant Manager Language: Greenlandic Carbon Sequestration Plant Manager Services: Carbon Sequestration Plant Manager Present Information Interpreted: clinical only Accompanied by: Mother Allergies No Known Allergies Allergy (Verified 11/08/24 15:12) HPI Comments Details: 24 y/o Greenlandic speaking female patient presents for follow up of essential tremors, and headaches. Carbon Sequestration Plant Manager on Ipad and mom is here to helps with history taking. 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 She usually tries to sleep about 7 hours a night, though staying asleep is difficult, she tosses and turns periodically through the night. Denies parasomnias, vivid dreams and bruxism. She is stressed due to financial obligations and withdrawing from college courses due to her medical conditions. She noticed the tremors since 2020, and there is no specific pattern. The tremors are bilateral in her upper and lower extremities, she can not stand for a long period of time without needing to sit and rest. Her body temperature increases during the episodes, especially during her menstrual cycle, she eats ice cream to cool off or takes cold showers. She was prescribed Propanolol and discontinued use, due to hypotension. She felt more anxious and nausea on propanolol. She denies fevers, hot flashes, and denies sweating, numbness, burning, pins, needles, denies bells palsey, or lyme disease. She denies family history of neurological disorders, however states her father also has anemia with tremors. Headaches She has 3 headaches a month now upon waking up and can last 1/2 hour with a severity of 5/10. She has to move slowly from lying to sitting b/c the headaches, they worsen with sudden movements. The headaches begin temporally and migrate to the back of the head with a dull 5/10 pain these can last about a few minutes. She has photophobia and phonophobia, with [place] of ligths flashing which gets smaller, then has vertigo immediately as if the earth is moving and dizziness. She denies loss of balance or gait difficulties. Denies n/v, the headaches improve with Topiramate 25mg po. She uses her migraine cap and sleeps in a dark room and this improves the pain. Doses of Tremfiya for psoriasis are due every 8 weeks. Devon does have a s/e of headaches and she is not planning on changing this medication. 5June Tremfiya 4Sept Tremfiya pending due to labs. [facility] Medical History GERD (gastroesophageal reflux disease) Headache Anxiety Occasional tremors Social History Household Members: Family Housing: Apartment Alcohol intake: never Patient Tobacco Use Status: Never used Tobacco Second Hand Smoke Exposure: No service: No Current occupational status: student Review of Systems ENT Reports Normal hearing present Neuro Reports Normal hearing present Physical Exam Vital Signs: Last Vital Signs Pulse 82 11/08/24 15:08 BP 102/72 11/08/24 15:08 Pulse Ox 99 11/08/24 15:08 Oxygen Delivery Method Room Air 11/08/24 15:08 BMI result Body Mass Index 23.5 Const General: cooperative and no acute distress Nutritional Appearance: average body habitus Orientation/consciousness: patient oriented x3 Eyes Pupils: Equal, round and reactive pupils present Neck Neck: Yes full ROM and Yes supple Resp Effort & Inspection: normal respiratory effort and able to speak in complete sen tences Neuro General: patient oriented x3, gait normal, moves all extremities and no focal motor deficits Cranial nerves: Yes Equal, round and reactive pupils present, Yes Bilaterally intact EOM present, Yes Normal facial strength present, Yes Midline tongue present, Yes Normal hearing present, Yes Ability to bilaterally rotate head present and Yes Ability to bilaterally elevate shoulders present Cognition (Neuro): normal cognition Gait exam (Neuro): Normal gait present Motor exam (neuro): 5/5 motor strength present throughout, Pronator motor function not present, Normal motor muscle tone present throughout and Tremors during motor activity present (bilateral posturing hands tremor and feet tremor. ) Coordination: [id number]-ry-zuja test normal Extrem Other: isela UE postural and action tremors, mild to moderate Psych Appearance: grossly normal Mental Status: mental status grossly normal Speech and movement: Normal speech and movement present Affect: normal affect Attitude: cooperative Thought process: Normal thought process present Thought content: Normal thought content present Results Reviewed Results Reviewed: Labs reviewed with pt. Assessment & Plan Assessment & Plan (1) Cervicalgia: Code(s): M54.2 - Cervicalgia Category: Medical (2) Anemia: Code(s): D64.9 - Anemia, unspecified Category: Medical Qualifiers: Anemia type: unspecified type Qualified Code(s): D64.9 - Anemia, unspecified (3) Tremor of both hands: Code(s): R25.1 - Tremor, unspecified Category: Medical (4) Headache: Code(s): R51.9 - Headache, unspecified Category: Medical Qualifiers: Headache type: orthostatic headache Qualified Code(s): R51.0 - Headache with orthostatic component, not elsewhere classified (5) Anxiety: Code(s): F41.9 - Anxiety disorder, unspecified Category: Medical (6) Abnormal RBC morphology: Comment: Anemia, thalassemia? BERTRAND? Code(s): R71.8 - Other abnormality of red blood cells Category: Medical Plan HST to r/o DEEPA Labs reviewed with pt today Hematology labs reviewed most likely has thalassemia due to f/h+. Tremors bilateral upper and lower extremity. Declines propranolol today, will monitor as pt declines medication today. Chronic migraine management Continue Topiramate 25mg PO daily at night. Acute migraine management Sumatriptan 50mg at the onset of headache and may take one additional tablet with in 2 hours if headache does not abort. Do not exceed more than 100mg in a 24 hour period. Start magnesium 400 mg qhs Start B6 200mg qhs. Continue to take ferrous sulfate 325 mg q other day with vitamin C 500 mg daily. Increase water intake for constipation. Will f/u in 3 months. Orders: Orders RT home sleep study 11/08/24 G47.19 - Other hypersomnia PT Evaluation and Treatment 09/25/25 M54.2 - Cervicalgia Medications: New mecobalamin (vitamin B12) place tablet under tongue and allow to dissolve for at least30 secs before swallowing 1,000 mcg sublingual BEDTIME 90 tabs 0RF anemia 3 months MDD 1000mcg D64.9 - Anemia, unspecified Changed From ferrous sulfate 325 mg PO Q OTHER DAY 90 days 45 tabs 1RF To ferrous sulfate 325 mg PO ONCE 90 tabs 1RF anemia 90 days MDD 325 Refilled cholecalciferol (vitamin D3) take one capsule by mouth daily at bedtime 50 mcg PO DAILY 60 caps 1RF vitamin d insufficiency 60 days MDD 50 mcg E55.9 - Vitamin D deficiency, unspecified magnesium oxide 400 mg PO BEDTIME 90 tabs 1RF 90 days sumatriptan succinate 50 mg orally; at the onset of headache, may repeat 2 hours later if headache does not abort. Do not take more than 2 tablets in a 24 hour period. 10 tabs 0RF headaches MDD 100mg R51.9 - Headache, unspecified Patient Instructions: Sleep Hygiene provided: set a scheduled bedtime and wake time to help regulate the circadian rhythm and balance the release of pituitary hormones. Sleep in a dark room, temperatures below 68 degrees, and no devices n bed. Limit caffeinated products 6 hours prior to bed, and limit fluids 2-4 hours prior to bed. Gentle night yoga, diffusing essential oils, and playing soft music can be relaxing. Coding Level of Care Code Est Pt Level 4 (50179) Diagnoses Cervicalgia M54.2 Anemia, unspecified type D64.9 Anemia type: unspecified type Tremor of both hands R25.1 Orthostatic headache R51.0 Headache type: orthostatic headache Anxiety F41.9 Abnormal RBC morphology R71.8
[2024-11-08 15:08] VITALS: BP 102/72; PULSE 82; O2SAT 99; BMI 23.5
--- OUTSIDE RECORDS SUMMARY | 2024-11-08 18:30 | XMS_ITS | Clinical Summary ---
Author Organization [employer] Address [address] [facility] 7 [place] [address] Care Team Providers Care Geoscience Laboratory Technician Name Role Phone Unavailable Primary Care Provider Unavailabl e Encounters Date Type Department Care Team Description 09/04/2024 Population Health Risk Score [facility] (C3) Department [address] [facility] [address] [place] [id number] Provider, Population Health Generic from Last 3 Months Social History Tobacco Use Types Packs/Day Years Used Date Smoking Tobacco: Never Assessed Comments Unknown Sex and Gender Information Value Date Recorded Sex Assigned at Not on file Legal Sex Female 9:27 PM EDT Gender Identity Not on file Sexual Orientation Not on file Plan of Treatment Health Maintenance Due Date Last Done Comments Depression Screening 1998 SDOH Screening 1998 Disability Screening 1998 Alcohol/Substance Use Screening 2010 Tobacco Screening 2010 Family Planning (PISQ) 2013 Hepatitis B Vaccines (2 of 3 - 3-dose series) 11/07/2013 10/10/2013 Hepatitis C Screening 2016 Pap Smear 2019 DTaP/Tdap/Td Vaccines (4 - Td or Tdap) 06/12/2024 06/12/2014, 11/23/2013, 10/10/2013 COVID-19 Vaccine ( - season) 2024 03/24/2021, 07/21/2020, 06/25/2020 Influenza Vaccine (#1) 2024 03/24/2021, 2013 Zoster Vaccines (1 of 2) 2048 RSV Patients and Patients Aged 60 years or older (1 - 1-dose 75+ series) 2073 Hepatitis A Vaccines Completed 01/27/2015, 01/18/20 14 IPV Vaccines Completed 01/27/2015, 05/2013, 11/23/2013, Additional history exists Meningococcal Vaccine Completed 08/01/2015, 014 HPV Vaccines Completed 01/23/2016, 07/15, 01/17/2014 Pneumococcal Vaccine: Pediatrics (0 to 5 Years) and At-Risk Patients (6 to 49) Years Aged Out 01/23/2016, 10/10/2013 No longer eligibl e based on patient's age to complete this topic HIV Screening Completed 01/14/2020 HIB Vaccines Aged Out No longer eligi ble based on patient's age to complete this topic Meningococcal B Vaccine Aged Out No l onger eligible based on patient's age to complete this topic RSV under 20 months Aged Out No longe r eligible based on patient's age to complete this topic Rotavirus Vaccines Aged Out No longer eligible based on patient's age to complete this topic
--- OUTSIDE RECORDS SUMMARY | 2024-11-08 18:30 | XMS_ITS | Clinical Summary ---
Author Organization [facility] Address [address] [place] [address] Care Team Providers Care Wool Washing Machine Operator Name Role Phone Lore Hoyos TESSIE Primary Care Provider [phone] Source Comments PLEASE NOTE, if this patient [...] Tremor 02/18/2020 Overview (05/20/2020): 01/25/20 Joana at [facility] Neurology Dr Gipson. Concern for Arsenio's disease vs essential tremor. Will get records of work up. Get ophtho exam for slit lamp exam, check labs, sign release of records from [facility]. F/u 3 months. 04/29/20 F/u [facility] Neurology. Concern for Arsenio's disease. Ordered genetic testing, ophthalmology exam for slit lamp exam, Will likely pursue referral to Movement Disorder clinic at [facility] for further evaluation if genetic [...] 09/15/[address] Omar Burger at [facility] Ped Heme/Onc. Her anemia is c/w beta thalassemia trait. He recommends genetic counseling. Stop iron supplements. She also has a h/o tremulousness and dropping things as well as a low ceruloplasmin. Recommends serum copper and 24-hour urine copper and consider evaluation by pile driver operator barge mounted to look for Mann Gabrielle rings (all [...] Flu, Preservative Free 03/24/2021 HEP B, PED/ADOL ([id number]-Z-[id number]/RECOMBIVAX-PEDS) 10/10/2013 HPV 9 (Gardasil) 01/23/2016,08/01/2015 HPV, QUADRIVALENT 01/17/2014 Hep A, Ped/adol, 2 Dose 01/27/2015,01/17/2014 IPV (IPOL) 01/27/2015, 4,11/23/2013,10/10 Influenza Virus Vaccine (FLU MIST), Live Intranasal 11/23/2013 MENINGOCOCCAL MCV4P (MENACTRA) 08/01/2015,2013 MMR (MMR II/Priorix) 11/23/2013,10/10/2013 CIDCO COVID VACCINE, PURPLE CAP, 12+ 03/24/2021 ,07/21/2020,06/25/2020 [...] Care Team (Late st Contact Info) Description 01/09/2025 9:00 AM EST Office Visit [facility] [address] [place] [address] Asif Diaz [address] [place] [address] Health Maintenance Due Date Last Done Comments Anxiety Screening 1998 HPV Screening 1998 Pap + HPV 1998 Cervical Cancer Screening 2019 Pap Smear 2019 Annual Wellness (Adult): Indicated (All Coverage) 02/28/2020 02/27/2019, 05/31/2017 Relationship Safety Screening/Counseling 01/20/2024 01/19/2023, 03/16/2021, 05/20/2020 Alcohol and Drug Screen 02/15/2024 12/08/19, 01/19/2023, 03/18/2020, Additional history exists Depression Annual Screen 02/15/2024 12/08/2023, 05/15 Imm-DTaP/Tdap/Td (4 - Td or Tdap) 06/12/2024 06/12/2014, 11/23/2013, 10/10/2013 [id number] ( season) 2024 03/24/2021, 07/21/2020, 06/25/2020 Imm-Influenza (#1) 2024 03/24/2021, 11/23/2013 Hypertension Screening [...] LAB SCANNED DOCUMENT 08/09/2024 3:00 AM EDT LAB SCANNED DOCUMENT 08/09/2024 3:00 AM EDT LAB SCANNED DOCUMENT 08/09/2024 3:00 AM EDT LAB SCANNED DOCUMENT 08/09/2024 3:00 AM EDT LAB SCANNED DOCUMENT 08/09/2024 3:00 AM EDT LAB SCANNED DOCUMENT 08/09/2024 3:00 AM EDT HEPATITIS C AB W/RFLX HCV RNA, QT, RT PCR Routine 03/16/2021 11:42 AM EST Encounter for hepatitis C screening test for low risk patient ANTIBODY HIV-1&HIV-2 SINGLE RESULT Routine 01/14/2020 10:54 AM EST Lump in neck from Last 3 Months or Most Recently Relevant to Health Maintenance Results * LAB SCANNED DOCUMENT (08/09/2024 3:00 AM EDT) Only the most recent of6 resultswithin the time period is included. 08/09/2024 3:00 AM EDT Cleopatra Carrillo [facility] [place] [facility] SCAN LAB Final Res ult * HEPATITIS C AB W/RFLX HCV RNA, QT, RT PCR (03/16/2021 11:42 AM EST) HEPATITIS C ANTIBODY NON-REACT GALLO NON-REACT GALLO [employer] [facility] SIGNAL TO CUT-OFF 0.41 <1.00 [employer] Comment: HCV antibody was non-reactive. There is no laboratory evidence of HCV infection. In most cases, no further action is required. However, if recent HCV exposure is suspected, a test for HCV RNA (test code 50087) is suggested. For additional information please refer to http://education.[employer]/faq/AKB75b0 (This link is being provided for informational/ educational purposes only.) Blood Blood / Unknown 03/16/2021 1 1:42 AM EST 03/16/2021 11:42 AM EST Cleopatra Carrillo [facility] [place] [facility] LAB - BLOOD DRAW Edited R esult - Final [employer] [address] [address], [employer] [facility] [address] [address] * HIV-1 & HIV-2 ANTIBODIES (01/14/2020 10:54 AM EST) Pathologist [facility] HIV 1 AND 2 ANTIBODY SCREEN NEGATIVE NEGATIVE [employer] [facility] Comment: This assay is a 4th [...] AM EST 01/14/2020 1:19 PM EST Narrative [facility] - 01/14/2020 4:41 PM EST [employer], a member of [address] [address] Humanities Professor - Yolanda Maria MD PT ID [id number] ORD# [id number] us Cleopatra Carrillo [facility] LAB - BLOOD DRAW Final Re sult [facility] [address] [place] [address], [place] [phone] from Last 3 Months or Most Recently Relevant to Health Maintenance Insurance [place] MED[place] D[place] Care Teams Wool Washing Machine Operator Relationship Specialty Start Date End Date Lore Hoyos NP [facility] [place] [address] PCP - General Family Medicine, SINGE WINDER 12/13/23
== END 2024-11-08 16:07 | disposition home or self-care (01) ==
LOC: HO.HSMS 14:01
PROVIDERS: Visit Provider Physician Assistant Medical
DX: M54.2 Cervicalgia (principal); D64.9 Anemia, unspecified; R25.1 Tremor, unspecified; R51.0 Headache with orthostatic component, not elsewhere classified; F41.9 Anxiety disorder, unspecified; R71.8 Other abnormality of red blood cells
CPT/HCPCS: 99214

== ENCOUNTER → 2024-11-08 14:01 | Outpatient (BNVA) | payer MEDICAID, SELFPAY | PROVIDERS: Visit Provider Physician Assistant Medical | DX: M54.2 Cervicalgia (principal); R25.1 Tremor, unspecified; R51.0 Headache with orthostatic component, not elsewhere classified; F41.9 Anxiety disorder, unspecified; R71.8 Other abnormality of red blood cells | CPT/HCPCS: 99212 ==

== ENCOUNTER 2024-11-28 10:08 | Outpatient (REF) | payer MEDICAID, SELFPAY ==
--- OUTSIDE RECORDS SUMMARY | 2024-11-28 12:01 | XMS_ITS | Clinical Summary ---
Author Organization [facility] Address [address] [place] [address] Care Team Providers Care Card Cleaner Name Role Phone Lore Hoyos TESSIE Primary Care Provider [phone] Source Comments PLEASE NOTE, if this patient [...] Tremor 02/18/2020 Overview (05/20/2020): 01/25/20 Joana at [facility] Neurology Dr Gipson. Concern for Arsenio's disease vs essential tremor. Will get records of work up. Get ophtho exam for slit lamp exam, check labs, sign release of records from [facility]. F/u 3 months. 04/29/20 F/u [facility] Neurology. Concern for Arsenio's disease. Ordered genetic testing, ophthalmology exam for slit lamp exam, Will likely pursue referral to Movement Disorder clinic at [facility] for further evaluation if genetic testing [...] 09/15/[address] Omar Burger at [facility] Ped Heme/Onc. Her anemia is c/w beta thalassemia trait. He recommends genetic counseling. Stop iron supplements. She also has a h/o tremulousness and dropping things as well as a low ceruloplasmin. Recommends serum copper and 24-hour urine copper and consider evaluation by tower equipment repairer to look for Mann Gabrielle rings (all [...] Flu, Preservative Free 03/24/2021 HEP B, PED/ADOL ([id number]/RECOMBIVAX-PEDS) 10/10/2013 HPV 9 (Gardasil) 01/23/2016,08/01/2015 HPV, QUADRIVALENT 01/17/2014 Hep A, Ped/adol, 2 Dose 01/27/2015,01/17/2014 IPV (IPOL) 01/27/2015, 4,11/23/2013,10/10 Influenza Virus Vaccine (FLU MIST), Live Intranasal 11/23/2013 MENINGOCOCCAL MCV4P (MENACTRA) 08/01/2015,2013 MMR (MMR II/Priorix) 11/23/2013,10/10/2013 [employer] COVID VACCINE, PURPLE CAP, 12+ 03/24/2021 ,07/21/2020,06/25/2020 [...] Description 01/09/2025 9:00 AM EST Office Visit [facility] [address] [place] [address] Asif Diaz [address] [place] [address] Health Maintenance Due Date Last Done Comments [...] Td or Tdap) 06/12/2024 06/12/2014, 11/23/2013, 10/10/2013 [id number] ( season) 2024 03/24/2021, 07/21/2020, 06/25/2020 Imm-Influenza [...] HEPATITIS C ANTIBODY NON-REACT GALLO NON-REACT GALLO [employer] SIGNAL TO CUT-OFF 0.41 <1.00 [employer] Comment: HCV antibody was non-reactive. There is no laboratory evidence of HCV infection. In most cases, no further action is required. However, if recent HCV exposure is suspected, a test for HCV RNA (test code 32636) is suggested. For additional information please refer to http://education.[employer]/faq/GYE38x1 (This link is being provided for informational/ educational purposes only.) Blood Blood / Unknown 03/16/2021 1 1:42 AM EST 03/16/2021 11:42 AM EST Jenny Belinda [facility] LAB - BLOOD DRAW Edited R esult - Final [facility] [employer] [facility] [address] [address], [facility] [address] [address] * HIV-1 & HIV-2 ANTIBODIES (01/14/2020 10:54 AM EST) [facility] HIV 1 AND 2 ANTIBODY SCREEN NEGATIVE NEGATIVE [facility] [employer] [facility] Comment: This assay is a 4th [...] AM EST 01/14/2020 1:19 PM EST Narrative [facility] - 01/14/2020 4:41 PM EST 2,[id number], [place] [address] Director Airport Operations - Yolanda Maria MD PT ID [id number] ORD# [id number] JennySallie Carrillo [facility] LAB - BLOOD DRAW Final Re sult Performing Organization Address City/[facility]/ZIP Co de Phone Number [facility] [employer] [address], from Last 3 Months or Most Recently Relevant to Health Maintenance Insurance [place] Care Teams Card Cleaner Relationship Specialty Start Date End Date Lore Hoyos NP [address] [place] [phone] PCP - General Family Medicine, NUTRITION SERVICES ASSOCIATE 12/13/23
--- OUTSIDE RECORDS SUMMARY | 2024-11-28 12:01 | XMS_ITS | Clinical Summary ---
Author Organization [employer] Address [address] [facility] 7 [place] [address] Care Team Providers Care Driller Portable Name Role Phone Unavailable Primary Care Provider Unavailabl e Encounters Date Type Department Care Team Description 09/04/2024 Population Health Risk Score [facility] (C3) Department 75 [facility] [address] [place] [id number] Provider, Population Health Generic from Last 3 [...]
[2024-11-28 14:17] LABS: Ferritin 56 ng/mL (10-122); Iron 97 mcg/dL (30-160); Percent Iron Saturation 40 % (15-50); Total Iron Binding Capacity 245 mcg/dL (228-428); Unsaturated Iron Binding 148 ug/dL
[2024-11-28 14:38] LABS: Folate 7.5 ng/mL (> or = 4.0); Vitamin B12 780 pg/mL (200-900)
== END 2024-11-28 10:09 | disposition home or self-care (01) ==
LOC: HO.HKASLDS 10:08
PROVIDERS: PCP Dentist General Practice; Visit Provider Physician Assistant Medical
DX: R53.83 Other fatigue (principal); G47.9 Sleep disorder, unspecified; D56.9 Thalassemia, unspecified
CPT/HCPCS: 36415; 82306; 82607; 82728; 82746; 83090; 83540; 83921; 84207; 84425

== ENCOUNTER → 2024-12-06 10:40 | Outpatient (BNV) | payer MEDICAID, SELFPAY | PROVIDERS: Visit Provider Internal Medicine Medical Oncology | DX: D64.9 Anemia, unspecified (principal) | CPT/HCPCS: 99213 ==

== ENCOUNTER 2025-01-30 08:30 | Outpatient (RCR) | payer MEDICAID, SELFPAY ==
[2024-12-12 08:45] VITALS: BP 107/72; PULSE 78; RESP 18; TEMP 36.1; O2SAT 100
[2024-12-19 08:33] VITALS: BP 115/65; PULSE 74; RESP 18; TEMP 36.6
[2024-12-28 08:28] VITALS: BP 101/63; PULSE 79; RESP 16; O2SAT 100
[2025-01-02 08:25] VITALS: BP 101/56; PULSE 76; RESP 16; TEMP 36.6; O2SAT 100
[2025-01-02 08:45] LABS: Hematocrit 32.9 % (37.0-47.0); Hemoglobin 10.4 g/dl (12.0-16.0); Mean Corpuscular HGB Conc 31.6 g/dl (31.0-35.0); Mean Corpuscular Hemoglobin 18.9 pg (27.0-33.0); NRBC Abs Auto 0.000 X10*3/uL (0.0-0.012); NRBC Pct Auto 0.0 /100WBC (0.0-0.2); Platelet Count 236 X10*3/uL (160-400); Red Blood Count 5.49 X10*6/uL (4.20-5.50); White Blood Count 5.7 X10*3/uL (4.8-10.8)
[2025-01-02 08:48] LABS: Mean Corpuscular Volume 59.9 fL (80.0-98.0)
[2025-01-02 09:16] LABS: Ferritin 279 ng/mL (10-122)
[2025-01-09 08:55] VITALS: BP 103/64; PULSE 72; RESP 18; TEMP 36.6
[2025-01-16 09:28] VITALS: BP 101/44; PULSE 80; RESP 16; TEMP 36.6; O2SAT 97
[2025-01-23 07:41] VITALS: BP 117/68; PULSE 74; RESP 16; TEMP 36.6; O2SAT 99
[2025-01-30 08:37] VITALS: BP 96/64; PULSE 74; RESP 16; TEMP 36.6; O2SAT 100
[2025-01-30 09:17] LABS: Hematocrit 30.8 % (37.0-47.0); Hemoglobin 9.7 g/dl (12.0-16.0); Mean Corpuscular HGB Conc 31.5 g/dl (31.0-35.0); Mean Corpuscular Hemoglobin 18.5 pg (27.0-33.0); NRBC Abs Auto 0.000 X10*3/uL (0.0-0.012); NRBC Pct Auto 0.0 /100WBC (0.0-0.2); Platelet Count 227 X10*3/uL (160-400); Red Blood Count 5.23 X10*6/uL (4.20-5.50); White Blood Count 4.8 X10*3/uL (4.8-10.8)
[2025-01-30 09:24] LABS: Mean Corpuscular Volume 58.9 fL (80.0-98.0)
[2025-01-30 09:50] LABS: Ferritin 448 ng/mL (10-122)
== END 2025-01-30 09:21 | disposition home or self-care (01) ==
LOC: HO.INF 08:30
PROVIDERS: Visit Provider Internal Medicine Medical Oncology
DX: D64.9 Anemia, unspecified (principal)
CPT/HCPCS: 36415; 82728; 85027; 96365; 96374; J1756

== ENCOUNTER 2025-02-11 14:29 | Outpatient (AMB) | payer MEDICAID, SELFPAY ==
--- NOTE | 2025-02-11 14:27 | A.OFFVIS_ITS ---
Vital Signs 02/11/25 14:31 Height 5 ft 2 in Weight 133 lb BMI 24.3 BP 100/64 Blood Pressure Location Rt brachial Position Sitting Pulse 77 Pulse Source Pulse Oximeter Pulse Oximetry (%) 99 Oxygen Delivery Method Room Air Intake Visit Reasons: 3mnth Intake Note: Patient presents follow up Tremor/migraine medication. HST booked 02/13 Online Merchandising Manager Required: No Accompanied by: Young brother Allergies No Known Allergies Allergy (Verified 02/11/25 14:33) HPI Comments Details: 24 y/o Faroese speaking female patient presents for a follow up of essential tremors, and headaches. For the last 4 weeks she is being followed by hematology/oncology due to Beta thalassemia trait and has an infusion every 7 days. Her hgb and hct is slowly improving. She has been able to sleep better averaging 2 night time awakenings now. Staying asleep is still difficult for her, she can average 4-6 hours a night. She has anxiety and is managing with family support and meditation. Her tremors have improved since starting the infusions and supplementing with magnesium. Discontinued propanolol due to hypotension. The headaches are now occurring once a week and lasting for an hour, they improve with sumatriptan prn and topiramate qpm was not effective. She denies rls symptoms of paresthesias and takes tremfya for psoriasis. She has a f/u on Mar 11, 2024. 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 Her mom states the father's side of family has a history of Beta -Thallasemia trait, She is stressed due to financial obligations and withdrawing from college courses due to her medical conditions.She noticed the tremors since 2020, and there is no specific pattern. The tremors are bilateral in her upper and lower extremities, she can not stand for a long period of time without needing to sit and rest. Characteristics of Headaches: The headaches begin temporally and migrate to the back of the head with a dull 5/10 pain these can last about a few minutes. She has photophobia and phonophobia, with [place] of ligths flashing which gets smaller, then has vertigo immediately as if the earth is moving and dizziness. She denies loss of balance and gait difficulties, n/v. She uses her migraine cap and sleeps in a dark room and this improves the pain. [facility] Medical History GERD (gastroesophageal reflux disease) Headache Anxiety Occasional tremors Social History Household Members: Family Housing: Apartment Alcohol intake: never Patient Tobacco Use Status: Never used Tobacco Second Hand Smoke Exposure: No service: No Current occupational status: student Review of Systems ENT Reports Normal hearing present Neuro Reports Normal hearing present Physical Exam Vital Signs: Last Vital Signs Pulse 77 02/11/25 14:31 BP 100/64 02/11/25 14:31 Pulse Ox 99 02/11/25 14:31 Oxygen Delivery Method Room Air 02/11/25 14:31 BMI result Body Mass Index 24.3 Const General: cooperative and no acute distress Nutritional Appearance: average body habitus Orientation/consciousness: patient oriented x3 Eyes Pupils: Equal, round and reactive pupils present Neck Neck: Yes full ROM and Yes supple Resp Effort & Inspection: normal respiratory effort and able to speak in complete sentences Neuro General: patient oriented x3, gait normal, moves all extremities and no focal motor deficits Cranial nerves: Yes Equal, round and reactive pupils present, Yes Bilaterally intact EOM present, Yes Normal facial strength present, Yes Midline tongue present, Yes Normal hearing present, Yes Ability to bilaterally rotate head present and Yes Ability to bilaterally elevate shoulders present Cognition (Neuro): normal cognition Gait exam (Neuro): Normal gait present Motor exam (neuro): 5/5 motor strength present throughout, Pronator motor function not present, Normal motor muscle tone present throughout and Tremors during motor activity present (bilateral posturing hands tremor and feet tremor. ) Coordination: [id number] test normal Extrem Other: isela UE postural and action tremors, mild to moderate Psych Appearance: grossly normal Mental Status: mental status grossly normal Speech and movement: Normal speech and movement present Affect: normal affect Attitude: cooperative Thought process: Normal thought process present Thought content: Normal thought content present Results Reviewed Results Reviewed: Labs reviewed with pt. HST is pending. Assessment & Plan Assessment & Plan (1) Cervicalgia: Code(s): M54.2 - Cervicalgia Category: Medical (2) Anemia: Code(s): D64.9 - Anemia, unspecified Category: Medical Qualifiers: Anemia type: unspecified type Qualified Code(s): D64.9 - Anemia, unspecified (3) Tremor of both hands: Code(s): R25.1 - Tremor, unspecified Category: Medical (4) Headache: Code(s): R51.9 - Headache, unspecified Category: Medical Qualifiers: Headache type: orthostatic headache Qualified Code(s): R51.0 - Headache with orthostatic component, not elsewhere classified (5) Anxiety: Code(s): F41.9 - Anxiety disorder, unspecified Category: Medical (6) Abnormal RBC morphology: Comment: Anemia, thalassemia? BERTRAND? Code(s): R71.8 - Other abnormality of red blood cells Category: Medical Plan HST to r/o DEEPA is pending. Labs reviewed with pt today Hematology labs reviewed most likely has thalassemia due to f/h+. Tremors -Bilateral upper and lower extremity tremors. Discontinued Propanolol due to hypotension. Chronic migraine management - continue Topiramate 25mg po qpm daily. Acute migraine management Sumatriptan 50mg po at the onset of headache and may take one additional tablet with in 2 hours if headache does not abort. Do not exceed more than 100mg in a 24 hour period. May don a migraine cap and lay down for a few hours to rest and decrease symptoms. Continue magnesium 400 mg qhs Continue B6 200mg qhs. Continue Vit D 125mcg daily F/U with hematology / oncology Dr. Mccoy for planned infusions. Continue to take ferrous sulfate 325 mg q other day with vitamin C 500 mg daily and Increase water intake for constipation. Will f/u in 3 months. Medications: Changed From cholecalciferol (vitamin D3) take one capsule by mouth daily at bedtime 50 mcg PO DAILY 60 days 60 caps 1RF vitamin d insufficiency MDD 50 mcg E55.9 - Vitamin D deficiency, unspecified To cholecalciferol (vitamin D3) take one capsule by mouth daily at bedtime 125 mcg PO DAILY 90 caps 1RF vitamin d insufficiency 3 months MDD 50 mcg E55.9 - Vitamin D deficiency, unspecified Refilled magnesium oxide 400 mg PO BEDTIME 90 tabs 1RF 90 days mecobalamin (vitamin B12) place tablet under tongue and allow to dissolve for at least30 secs before swallowing 1,000 mcg sublingual BEDTIME 90 tabs 0RF anemia 3 months MDD 1000mcg D64.9 - Anemia, unspecified sumatriptan succinate 50 mg orally; at the onset of headache, may repeat 2 hours later if headache does not abort. Do not take more than 2 tablets in a 24 hour period. 14 tabs 0RF headaches MDD 100mg R51.9 - Headache, unspecified ascorbate calcium (vitamin C) 500 mg PO DAILY 90 tabs 1RF 90 days topiramate (Topamax) 25 mg PO BEDTIME 90 tabs 1RF 90 days Patient Instructions: Sleep Hygiene reviewed with pt today. Coding Level of Care Code Est Pt Level 4 (32505) Diagnoses Cervicalgia M54.2 Anemia, unspecified type D64.9 Anemia type: unspecified type Tremor of both hands R25.1 Orthostatic headache R51.0 Headache type: orthostatic headache Anxiety F41.9 Abnormal RBC morphology R71.8
[2025-02-11 14:31] VITALS: BP 100/64; PULSE 77; O2SAT 99; BMI 24.3
--- OUTSIDE RECORDS SUMMARY | 2025-02-11 16:51 | XMS_ITS | Clinical Summary ---
Author Organization [employer] Address [address] [facility] 7 [place] [address] Care Team Providers Care Storage Engineer Name Role Phone Unavailable Primary Care Provider Unavailabl e Social History Tobacco Use Types Packs/Day Years [...] Hepatitis C Screening 2016 Pap Smear 2019 COVID-19 Vaccine ( season) 2024 03/24/2021, 07/21/2020, 06/25/2020 Influenza Vaccine (#1) 2024 03/24/2021, 2013 DTaP/Tdap/Td Vaccines (5 - Td or Tdap) 01/14/2035 01/14/2025, 06/12/2014, 11/23/2013, Additional history exists Zoster Vaccines (1 of 2) 2048 RSV [...]
== END 2025-02-11 14:57 | disposition home or self-care (01) ==
LOC: HO.HSMS 14:29
PROVIDERS: Visit Provider Physician Assistant Medical
DX: M54.2 Cervicalgia (principal); D64.9 Anemia, unspecified; R25.1 Tremor, unspecified; R51.0 Headache with orthostatic component, not elsewhere classified; F41.9 Anxiety disorder, unspecified; R71.8 Other abnormality of red blood cells
CPT/HCPCS: 99214

== ENCOUNTER → 2025-02-11 14:29 | Outpatient (BNVA) | payer MEDICAID, SELFPAY | PROVIDERS: Visit Provider Physician Assistant Medical | DX: R25.1 Tremor, unspecified (principal); M54.2 Cervicalgia; G43.709 Chronic migraine without aura, not intractable, without status migrainosus; D64.9 Anemia, unspecified; R51.0 Headache with orthostatic component, not elsewhere classified; F41.9 Anxiety disorder, unspecified; E55.9 Vitamin D deficiency, unspecified; Z79.899 Other long term (current) drug therapy | CPT/HCPCS: 99212 ==